=== PATIENT | male | born 1980 | race Caucasian/White ===

== ENCOUNTER 2019-08-28 09:48 | Emergency (ER) | payer OTHER ==
[~2019-08-28] VITALS: Ht 165.1 cm; Wt 93.9 kg
[2019-08-28 09:49] VITALS: BP 158/113
[2019-08-28] MEDS ORDERED: TOBRAMYCIN SULFA5 M1 OPHTHALMIC (14:07)
== END 2019-08-28 14:12 | disposition still patient (30) ==
LOC: ER 09:48
DX: H00.12 Chalazion right lower eyelid (principal); J45.909 Unspecified asthma, uncomplicated